=== PATIENT | male | born 1955 | race Caucasian/White ===

== ENCOUNTER 2017-04-22 03:54 | Emergency (ER) | payer BC ==
[~2017-04-22] VITALS: Ht 172.7 cm; Wt 95.3 kg
[2017-04-22] MEDS ORDERED: WARF-23 PO (04:15)
[2017-04-22] MEDS ORDERED: WARF-20 PO (04:15)
[2017-04-22] MEDS ORDERED: KEPP500T6 PO (04:16)
[2017-04-22] MEDS ORDERED: MULT1TAB10 PO (04:16)
[2017-04-22] MEDS ORDERED: CRES40TA PO (04:16)
[2017-04-22] MEDS ORDERED: levETIRAcetam 250MG TABLET (KEPPRA) PO ONE ×2 (04:30)
[2017-04-22 05:16] LABS: ANION GAP 7 MEQ/L (8-16); BLOOD UREA NITROGEN 17 MG/DL (7-18); CALCIUM LEVEL 8.2 MG/DL (8.8-10.2); CARBON DIOXIDE LEVEL 26 MEQ/L (21-32); CHLORIDE LEVEL 109 MEQ/L (98-107); CREATININE FOR GFR 1.11 MG/DL (0.70-1.30); GLOMERULAR FILTRATION RATE > 60.0 (>49); GLUCOSE, FASTING 105 MG/DL (80-110); POTASSIUM SERUM 4.4 MEQ/L (3.5-5.1); SODIUM LEVEL 142 MEQ/L (136-145)
[2017-04-22 05:18] VITALS: BP 111/69
--- NOTE | 2017-04-22 05:50 | REPUSA ---
CLINICAL HISTORY: Seizure. TECHNIQUE: Multiple axial brain CT scan sections were obtained from base to vertex without contrast a dministration. COMMENTS: The study shows normal configuration of sella turcica. There are no intra or extra-axial collections. There is no mass effect or midline shift. There is no evidence of hematoma formation. No hydrocephal us is present. No abnormal calcifications are noted. No significant abnormalities are seen either in the posterior fossa or supratentorial compartment. The sinuses and mastoid air cells are patent. IMPRESSION: No evidence of acute intracranial pathology. Thank you for your kind referral of this patient.
== END 2017-04-22 06:20 | disposition home or self-care (01) ==
LOC: M ED 03:54
DX: G40.909 Epilepsy, unspecified, not intractable, without status epilepticus (principal); Z86.718 Personal history of other venous thrombosis and embolism; Z79.01 Long term (current) use of anticoagulants; Z79.899 Other long term (current) drug therapy